=== PATIENT | male | born 1945 | race Caucasian/White ===

== ENCOUNTER 2017-09-02 06:48 | Emergency (ER) | payer MEDICARE, BC ==
--- NOTE | 2017-09-02 07:25 | EDM.PDOC ---
ED HPI GENERAL MEDICAL PROBLEM - General Chief Complaint: Genitourinary Problem Stated Complaint: CANNOT PASS HIS URINE Time Seen by Provider: 09/02/17 07:10 Source of Information: Reports: Patient History Limitations: Reports: No Limitations - History of Present Illness INITIAL COMMENTS - FREE TEXT/NARRATIVE: 71-year-old male with BPH who has an occasional acute urinary retention episode several times a year. It is not related to any new medications, he's been feeling fine, he went to bed last night and woke up in the middle the night was unable to pass his urine. He is in for a catheter, and he is going to see his urologist in 2 days. Onset: Unknown/Unsure (Obstruction developed sometime overnight) Severity: Moderate Bladder Pain Score (Numeric/FACES): 7 - Related Data Allergies Allergy/AdvReac Type Severity Reaction Status Date / Time No Known Allergies Allergy Verified 09/02/17 07:10 Past Medical History Cardiovascular History: Reports: High Cholesterol, Hypertension Genitourinary History: Reports: Retention, Urinary Other Genitourinary History: ENLARGED PROSTATE Social & Family History - Tobacco Use Smoking Status *Q: Unknown Ever Smoked ED ROS GENERAL - Review of Systems Review Of Systems: See Below Constitutional: Denies: Fever Respiratory: Denies: Shortness of Breath GI/Abdominal: Reports: Abdominal Pain (Lower abdominal pain due to bladder distention). Denies: Nausea, Vomiting Neurological: Denies: Headache ED EXAM, RENAL/ - Physical Exam Exam: See Below Exam Limited By: No Limitations General Appearance: Alert, Mild Distress Respiratory/Chest: No Respiratory Distress GI/Abdominal: Tender (Across lower abdomen) (Male) Exam: Other (Bladder is full, uncomfortable to palpation) Course - Vital Signs Last Recorded V/S: Last Vital Signs Temp 96.3 F 09/02/17 07:08 Pulse 63 09/02/17 07:08 Resp 14 09/02/17 07:08 BP 194/87 H 09/02/17 07:08 Pulse Ox 96 09/02/17 07:08 - Orders/Labs/Meds Orders: Active Orders 24 hr Category Date Time Status Insert Park Catheter [Insert Urinary Catheter] [OM.PC] Care 09/02/17 07:15 Ordered Q24H Urinary Catheter Assessment [RC] ASDIRECTED Care 09/02/17 07:14 Active - Re-Assessments/Exams Free Text/Narrative Re-Assessment/Exam: 09/02/17 07:23 A Park was placed and at the patient's request will be left until his urology appointment in 2 days which I think is appropriate. Departure - Departure Time of Disposition: 07:47 Disposition: Home, Self-Care 01 Condition: Good Clinical Impression: Acute urinary retention - Discharge Information Instructions: Acute Urinary Retention, Male Referrals: PCP,None [Primary Care Provider] - Forms: ED Department Discharge Care Plan Goals: Recheck with your urologist in 2-3 days as planned. Recheck sooner if other problems develop or obstruction of the Park catheter develops. - My Orders Last 24 Hours: My Active Orders 09/02/17 07:14 Urinary Catheter Assessment [RC] ASDIRECTED 09/02/17 07:15 Insert Park Catheter [Insert Urinary Catheter] [OM.PC] Q24H - Assessment/Plan Last 24 Hours: My Active Orders 09/02/17 07:14 Urinary Catheter Assessment [RC] ASDIRECTED 09/02/17 07:15 Insert Park Catheter [Insert Urinary Catheter] [OM.PC] Q24H
== END 2017-09-02 07:49 | disposition home or self-care (01) ==
LOC: JP.ED 06:48
DX: R33.9 Retention of urine, unspecified (principal); I10 Essential (primary) hypertension; E78.00 Pure hypercholesterolemia, unspecified
CPT/HCPCS: 51702; 99283-25; 99284